=== PATIENT | female | born 1955 | race Caucasian/White ===

== ENCOUNTER 2019-07-02 06:02 | Day surgery (SDC) | payer MEDICARE, MEDICAID, SELFPAY ==
[2019-06-27 12:05] VITALS: BMI 27.3
--- NOTE | 2019-06-27 12:30 | ANES.PREANES ---
Pre-Anesthetic Assessment Pre-Anesthetic Assessment: Height/Weight: Height 1.6 m Weight 69.853 kg Preop Diagnosis: polyps Proposed Procedure: Operation Date: 07/02/19 12:10 Proposed Procedures p Hysteroscopy with polypectomy, Paracervical block 65703 [id number], N84.0(Not Applicable) - Binh Dumont MD s Dilation And Curettage (D&C) w myosure(Not Applicable) - Binh Dumont MD Familial anesthetic complications: No trouble Was Beta Alireza taken within 24 hours: N/A Social: Social History: Tobacco (1 ppd) and No alcohol Exam: Pre-Anes Outpt Exam: alert Airway: Cervical ROM: WNL MP: 2 Additional comments: Top dentures Pulmonary: Pulmonary: None reported CV/HEM: CV/HEM: DVT and HTN Comments: On plavix for blood clots in legs, patient has stent in abdominal aorta : : None reported Hepatic: Hepatic: None reported GI: GI: GERD Metabolic: Metabolic: Hyperlipidemia Musc/skel: Musc/skel: None reported Neuropsych: Neuropsych: None reported Anesthetic Plan: ASA status: III Anesthesia: General Risk of > 500 ml blood loss (7ml/kg in children): No PFSH Anesthesia PFSH: Social History Smoking and tobacco status: current every day smoker cigarettes Alcohol intake: current Alcohol intake frequency: holidays/special occasions only Alcohol type: beer Substance/Drug Use: never Additional social history: Poorly balanced diet Data Anesthesia Cardiac Studies: No Data to Display
[2019-06-27 13:36] LABS: Anion Gap 16.2 (5-19); Blood Urea Nitrogen 14 mg/dL (8-23); Calcium 10.7 mg/Dl (8.8-10.2); Carbon Dioxide 27 mmol/L (22-29); Chloride 100 mmol/L (98-107); Glomerular Filtration Rate 72.7 mL/min (90-130); Glucose 123 mg/dL (74-106); Potassium 4.2 mmol/L (3.5-5.1); Sodium 139 mmol/L (136-145)
[2019-07-02 06:17] VITALS: BP 152/97; PULSE 87; RESP 20; TEMP 37.1; O2SAT 97
[2019-07-02] MEDS: ketorolac 30 mg/mL INJ IVP (06:31)
[2019-07-02] MEDS: sodium chloride 0.9% 1,000 ML 30 ML IV (06:32)
--- NOTE | 2019-07-02 07:11 | PM.HPUD ---
H&P update H&P Update: DATE OF SURGERY/PROCEDURE: 07/02/19 DATE H&P PERFORMED: 06/24/19 H&P UPDATE INFORMATION: H&P completed within last 30 days, No changes to prior documentation and [place] [facility] date indicated PREOP DIAGNOSIS: Endometrial Polyps PLANNED PROCEDURE: Operation Date: 07/02/19 07:40 Proposed Procedures p Hysteroscopy with polypectomy, Paracervical block 95847 [id number], N84.0(Not Applicable) - MD addison Vallejo Dilation And Curettage (D&C) w myosure(Not Applicable) - Binh Dumont MD Full H&P Medications/Allergies: Current Medications: Current Medications Generic Name Dose Route Start Last Admin Trade Name Freq PRN Reason Stop Dose Admin Sodium Chloride 1,000 mls @ 30 ml s/hr 07/02/19 05:45 07/02/19 06:32 Sodium Chloride 0.9% IV 07/03/19 05:44 30 mls/hr .Q24H JUAN Administration Perinent History: Medical/Surgical History: Medical History (Updated 06/29/19 @ 05:10 by Binh Dumont MD) Carotid atherosclerosis (Acute) Bilateral carotid atherosclerosis. Had high-grade stenosis of the left side treated surgically on 12/07/2016. At that time noted to have total occlusion of the right carotid artery. Chronic GERD (Acute) Dyslipidemia (Acute) Hypertension (Acute) Osteoporosis (Acute) Treated since 2011 Raynauds disease (Acute) Family History: Family History (Updated 06/21/19 @ 12:05 by Katya Weaver RN) Family/Other Breast cancer Paternal aunt Mother Hyperlipidemia Hypertension Diabetes Heart disease Social History: Social History Smoking and tobacco status: current every day smoker cigarettes Alcohol intake: current Alcohol intake frequency: holidays/special occasions only Alcohol type: beer Additional social history: Poorly balanced diet
--- NOTE | 2019-07-02 08:47 | P.OP_ITS ---
Operative Report Date of procedure: 07/02/19 Pre-op Diagnosis: Endometrial Polyps Pre-op Diagnosis: Post-op diagnosis: same Procedure Done: Hysteroscopy with polypectomy using MyoSure, Paracervical block. Specimens removed/disposition: Endometrial polyps Surgeon: Binh Dumont Anesthesia: MAC and Other (Paracervical block with 2% lidocaine with epinephrine) Estimated blood loss (mL): 2 IV fluids (mL): 700 Complications: None Condition: stable Disposition: other (Home) Brief History: Patient is a 64-year-old white female 4, para 4 who is postmenopausal. She had presented to the office as a referral from Vivi Love due to an incidental finding of a thickened endometrial lining found on CT scan. She had reported having some light pink spotting that been present since about 03/2019. She denied any pain associated with this. She thought the blood was due to sexual activity. As part of her evaluation, she had an ultrasound performed which showed an endometrial stripe of 1.8 cm. An office hysteroscopy was performed and identified 2 polyps within the endometrial cavity with the largest extending from the fundus down to the upper portion of the endocervical canal. Because of these findings, she was scheduled for a hysteroscopy with polypectomy. Procedure: The patient was taken to the operating room where IV sedation was started. She was prepped and draped in the usual sterile fashion in the dorsal supine position with legs in Logan style stirrups. Sequential compression boots had been placed prior to starting the case. Patient had voided just before coming to the operating room. Exam under anesthesia was performed and the patient was noted to have second- degree uterine prolapse with a second to third-degree cystocele. A weighted speculum was placed in the vagina and the cervix was grasped with a single-tooth tenaculum. A paracervical block was performed with a total of 12 mL of 2% lidocaine with epinephrine used. The cervix was serially dilated until a operative hysteroscope could be passed. Crystalloid solution was used as a distention media. The endometrial cavity was inspected and appeared normal except for 2 polyps. The largest was extending from the fundus down into the upper portion of the endocervical canal. The other was located in the left cornual region. Using the MyoSure device, the polyps were completely removed without difficulty. No additional polyps were identified other than the 2 previously mentioned. No other endometrial cavity abnormalities noted. Both tubal ostia identified and appeared normal. The tenaculum was removed and there was minimal bleeding from the tenaculum site. Patient tolerated the procedure well. Sponge and needle counts were correct. FINDINGS: Second-degree uterine prolapse with second to third-degree cystocele noted. 2 benign-appearing endometrial polyps identified. POSTOPERATIVE STATUS: The patient was transferred to the recovery room in satisfactory condition DISPOSITION: Discharge to home when criteria was met. FOLLOWUP APPOINTMENT: Followup appointment had been scheduled on 07/22/2019 in my office. MEDICATIONS: Tramadol 50 mg, 1 to 2 tablets every 6 hours as needed for pain, #10, 0 refills Patient may resume usual home medications.
[2019-07-02 08:51] VITALS: BP 91/56; PULSE 72; RESP 18; TEMP 37.2
[2019-07-02 09:15] VITALS: BP 124/86; PULSE 82; RESP 18; O2SAT 98
== END 2019-07-02 09:20 | disposition home or self-care (01) ==
PROVIDERS: Family Provider Nurse Practitioner; PCP Nurse Practitioner; Visit Provider Obstetrics & Gynecology
PROC: 0UDB8ZZ Extraction of Endometrium, Via Natural or Artificial Opening Endoscopic (ICD-10-PCS; CPT 58558; principal; 2019-07-02 07:40)
PROC: (CPT 58120; 2019-07-02 07:40)
DX: N84.0 Polyp of corpus uteri (principal); E78.5 Hyperlipidemia, unspecified; I10 Essential (primary) hypertension; M81.0 Age-related osteoporosis without current pathological fracture; Z82.49 Family history of ischemic heart disease and other diseases of the circulatory system; Z83.3 Family history of diabetes mellitus; F17.210 Nicotine dependence, cigarettes, uncomplicated; K21.9 Gastro-esophageal reflux disease without esophagitis
CPT/HCPCS: 58558; 12345; 36415; 80048; 88305; 96365; 96374; J1885; J2001; J2250; J2370; J2704; J3010; J7030

== ENCOUNTER → 2019-09-30 15:39 | Outpatient (BNVA) | payer MEDICARE, MEDICAID, SELFPAY | PROVIDERS: Family Provider Nurse Practitioner; PCP Nurse Practitioner; Visit Provider Nurse Practitioner | DX: I10 Essential (primary) hypertension (principal); E78.5 Hyperlipidemia, unspecified; J30.1 Allergic rhinitis due to pollen; J44.9 Chronic obstructive pulmonary disease, unspecified; Z87.891 Personal history of nicotine dependence | CPT/HCPCS: 80053 ==

== ENCOUNTER → 2019-12-23 09:52 | Outpatient (BNVA) | payer MEDICARE, MEDICAID, SELFPAY | PROVIDERS: Family Provider Nurse Practitioner; PCP Nurse Practitioner; Visit Provider Nurse Practitioner | DX: I10 Essential (primary) hypertension (principal); I65.29 Occlusion and stenosis of unspecified carotid artery; G47.00 Insomnia, unspecified; E78.5 Hyperlipidemia, unspecified; J44.9 Chronic obstructive pulmonary disease, unspecified; Z72.0 Tobacco use | CPT/HCPCS: 80053; 80061; 84443 ==

== ENCOUNTER 2020-01-07 09:49 | Outpatient (CLI) | payer MEDICARE, MEDICAID, SELFPAY ==
--- NOTE | 2020-01-07 10:15 | USCV_ITS ---
Jennifer Arreaga Age: 64 Gender: F : 1955 Exam Date: 01/07/2020 10:09 Ordering Phys: Mp Ramsey MD ([email or web address]) Technologist: Kathia Gerardo [place] [facility] [place]: CAROTID DISEASE Risk Factors: None Previous Vascular Surgery: L CEA Right Brachial BP: / Left Brachial BP: / Right Left Velocity (cm/s) Spectral Plaque Velocity (cm/s) Spectral Plaque Syst/Diast Broadening Syst/Diast Broadening 106.00/14.00 Prox CCA 90.80 / 37.80 54.30/ 13.00 Mid CCA 86.10 / 33.10 46.20/ 16.10 Distal CCA 83.30 / 34.10 / Prox ICA 81.40 / 30.30 / Mid ICA 89.90 / 38.80 / Distal ICA 118.40/ 54.50 124.00 ECA 75.70 ICA/CCA 1.38 Antegrade Vertebral Antegrade 58.60/ 19.10 cm/s 49.60/ 22.20 cm/s Tri Subclavian Tri 115.9 59.80 0 CONCLUSIONS RIght ICA occluded likely chronic. Right common carotid is patent. Left ICA stenosis <50%. Moderate atheromatous plaque left carotid bulb/ICA. Normal antegrade Doppler flow noted in the right vertebral artery. Normal antegrade Doppler flow noted in the left vertebral artery. Bobo Tobar MD (Electronically Signed) Final Date: 07 January 2020 15:43 S
== END 2020-01-07 09:50 | disposition home or self-care (01) ==
PROVIDERS: Family Provider Nurse Practitioner; PCP Nurse Practitioner; Visit Provider Internal Medicine Cardiovascular Disease
DX: I25.10 Atherosclerotic heart disease of native coronary artery without angina pectoris (principal); I65.23 Occlusion and stenosis of bilateral carotid arteries
CPT/HCPCS: 93880

== ENCOUNTER → 2020-06-25 08:46 | Outpatient (BNVA) | payer MEDICARE, MEDICAID, SELFPAY | PROVIDERS: Family Provider Nurse Practitioner; PCP Nurse Practitioner; Visit Provider Nurse Practitioner | DX: I10 Essential (primary) hypertension (principal); I65.29 Occlusion and stenosis of unspecified carotid artery; J30.1 Allergic rhinitis due to pollen; G47.00 Insomnia, unspecified; R73.9 Hyperglycemia, unspecified; E78.5 Hyperlipidemia, unspecified | CPT/HCPCS: 80053; 80061; 81000; 83036 ==

== ENCOUNTER 2020-08-06 08:24 | Outpatient (CLI) | payer MEDICARE, MEDICAID, SELFPAY ==
--- NOTE | 2020-08-06 08:45 | USCV_ITS ---
Jennifer Arreaga Age: 65 Gender: F : 1955 Exam Date: 08/06/2020 08:46 Ordering Phys: Shine Ziegler M.D ([email or web address]) Technologist: Kathia Gerardo [place] [facility] [place]ication: OCCLUSION AND STENOSIS Risk Factors: Previous Vascular Surgery: L CEA Right Brachial BP: / Left Brachial BP: / Right Left Velocity (cm/s) Spectral Plaque Velocity (cm/s) Spectral Plaque Syst/Diast Broadening Syst/Diast Broadening 40.60/ 12.80 Prox CCA 82.20 / 33.20 48.10/ 11.50 Mid CCA 78.10 / 33.60 43.30/ 6.80 Distal CCA 67.20 / 26.90 / Prox ICA 68.10 / 30.30 / Mid ICA 81.55 / 39.10 / Distal ICA 85.00 / 41.20 130.00 ECA 84.00 ICA/CCA 1.11 Antegrade Vertebral Antegrade 44.70/ 17.60 cm/s 44.40/ 22.80 cm/s Subclavian Tri 79.60 51.80 FINDINGS Comparison 12/29 CONCLUSIONS Prior Left CEA Left ICA stenosis <50%. Right ICA occlusion unchanged. . Right common carotid is patent. Normal antegrade Doppler flow noted in the right vertebral artery. Normal antegrade Doppler flow noted in the left vertebral artery. Bobo Tobar MD (Electronically Signed) Final Date: 06 August 2020 10:25 S
== END 2020-08-06 08:25 | disposition home or self-care (01) ==
LOC: US 08:24
PROVIDERS: PCP Nurse Practitioner; Visit Provider Internal Medicine
DX: I65.23 Occlusion and stenosis of bilateral carotid arteries (principal)
CPT/HCPCS: 93880

== ENCOUNTER → 2020-09-11 10:39 | Outpatient (BNVA) | payer MEDICARE, MEDICAID, SELFPAY | PROVIDERS: PCP Nurse Practitioner; Visit Provider Nurse Practitioner | DX: E78.5 Hyperlipidemia, unspecified (principal); J44.9 Chronic obstructive pulmonary disease, unspecified | CPT/HCPCS: 80053; 80061; 85025 ==

== ENCOUNTER 2020-10-08 13:57 | Outpatient (CLI) | payer MEDICARE, MEDICAID, SELFPAY ==
--- NOTE | 2020-10-08 14:30 | US_ITS ---
WS: [id number] THYROID ULTRASOUND HISTORY: E04.9 - Nontoxic goiter, unspecified COMPARISON: None available. Right lobe: 1.5 cm x 1.2 cm x 3.4 cm (w x ap x l). Volume: 3.0 cm3. Normal size and echogenicity. There are several small cystic nodules within the gland. No solid domin ant nodule. Left lobe: 1.7 cm x 1.4 cm x 3.3 cm (w x ap x l). Volume: 4.3 cm3. Normal size gland. No solid mass or suspicious mass. Isthmus: 0.3 cm. US/US thyroid [id number] IMPRESSION: Negative thyroid ultrasound. No suspicious masses or thyromegaly.
--- NOTE | 2020-10-08 15:30 | MM_ITS ---
WS: [id number] BILATERAL SCREENING DIGITAL MAMMOGRAM WITH CAD HISTORY: Z12.39 - Encounter for other screening for malignant neoplasm of breast COMPARISON: 05/01/2017 Bilateral CC and MLO views submitted. Computer aided detection analyzed. Breast composition: There are scattered areas of fibroglandular density. No suspicious masses, microc alcifications or architectural distortion. Inverted nipples. MM/[place] [id number] IMPRESSION: BI-RADS: 2-Benign FOLLOW UP: 1 Year Follow-up
== END 2020-10-08 13:58 | disposition home or self-care (01) ==
LOC: RAD 14:02
PROVIDERS: PCP Nurse Practitioner; Visit Provider Nurse Practitioner
DX: Z12.31 Encounter for screening mammogram for malignant neoplasm of breast (principal); E04.9 Nontoxic goiter, unspecified
CPT/HCPCS: 76536; 77067

== ENCOUNTER → 2021-03-30 09:07 | Outpatient (BNVA) | payer MEDICARE, MEDICAID, SELFPAY | PROVIDERS: PCP Nurse Practitioner; Visit Provider Nurse Practitioner | DX: I10 Essential (primary) hypertension (principal); I65.29 Occlusion and stenosis of unspecified carotid artery; J30.1 Allergic rhinitis due to pollen; G47.00 Insomnia, unspecified | CPT/HCPCS: 80053; 80061; 81000; 82607; 84443 ==

== ENCOUNTER 2021-09-01 07:15 | Outpatient (CLI) | payer MEDICARE, MEDICAID, SELFPAY ==
--- NOTE | 2021-09-01 07:45 | USCV_ITS ---
Jennifer Arreaga Age: 66 Gender: F : 1955 Exam Date: 09/01/2021 07:26 Ordering Phys: Shine Ziegler M.D ([email or web address]) Technologist: Exam Location: [facility] [place] Indication: rt side occlusion Risk Factors: Previous Vascular Surgery: Right Brachial BP: / Left Brachial BP: / Right Left Velocity (cm/s) Spectral Plaque Velocity (cm/s) Spectral Plaque Syst/Diast Broadening Syst/Diast Broadening 48.10/ 7.50 Prox CCA 58.40 / 22.10 32.00/ 7.50 Mid CCA 63.90 / 17.60 Hetro 31.00/ 5.90 Distal CCA 62.80 / 19.80 Hetro / Hetro Prox ICA 94.80 / 29.80 Hetro / Hetro Mid ICA 82.30 / 42.00 Hetro / Distal ICA 109.50/ 49.10 156.90 ECA 69.90 ICA/CCA 1.71 Antegrade Vertebral Antegrade 61.70/ 23.20 cm/s 51.70/ 21.00 cm/s Bi Subclavian Bi 106.9 84.10 0 FINDINGS Comparison:. 08/06/20. Know occlusion right ICA. Heavy plaque in the right CCA. Moderate plaque left CCA and ICA. Mild elevation of velocity left ICA. Antegrade vertebral arteries. CONCLUSIONS Complete occlusion right ICA, chronic. Left ICA stenosis < 50%. No progression of atherosclerosis. Dr. Lexus Contreras DO (Electronically Signed) Final Date: 01 September 2021 09:39 S
== END 2021-09-01 07:16 | disposition home or self-care (01) ==
LOC: RAD 07:15
PROVIDERS: PCP Nurse Practitioner; Visit Provider Internal Medicine
DX: I65.23 Occlusion and stenosis of bilateral carotid arteries (principal)
CPT/HCPCS: 93880

== ENCOUNTER → 2021-09-13 14:48 | Outpatient (BNVA) | payer MEDICARE, MEDICAID, SELFPAY | PROVIDERS: PCP Nurse Practitioner; Visit Provider Nurse Practitioner | DX: I10 Essential (primary) hypertension (principal) | CPT/HCPCS: 80053; 80061; 83721; 85025 ==

== ENCOUNTER → 2021-09-30 12:15 | Outpatient (BNVA) | payer MEDICARE, MEDICAID, SELFPAY | PROVIDERS: PCP Nurse Practitioner; Visit Provider Internal Medicine | DX: I65.23 Occlusion and stenosis of bilateral carotid arteries (principal); Z98.62 Peripheral vascular angioplasty status; I10 Essential (primary) hypertension; E78.5 Hyperlipidemia, unspecified; J44.9 Chronic obstructive pulmonary disease, unspecified; F17.210 Nicotine dependence, cigarettes, uncomplicated; I25.10 Atherosclerotic heart disease of native coronary artery without angina pectoris; Z98.890 Other specified postprocedural states | CPT/HCPCS: 99214 ==

== ENCOUNTER → 2022-03-22 14:46 | Outpatient (BNVA) | payer MEDICARE, MEDICAID, SELFPAY | PROVIDERS: PCP Nurse Practitioner; Visit Provider Nurse Practitioner | DX: I65.29 Occlusion and stenosis of unspecified carotid artery (principal); E78.1 Pure hyperglyceridemia; J30.1 Allergic rhinitis due to pollen; I10 Essential (primary) hypertension; E78.5 Hyperlipidemia, unspecified | CPT/HCPCS: 80053; 80061; 83721; 84443; 85025 ==

== ENCOUNTER 2022-03-31 06:03 | Outpatient (CLI) | payer MEDICARE, MEDICAID, SELFPAY ==
--- NOTE | 2022-03-31 06:30 | USCV_ITS ---
Arreaga Jennifer Age: 66 Gender: F : 1955 Exam Date: 03/31/2022 06:17 Ordering Phys: Shine Ziegler M.D ([email or web address]) Technologist: RAISA [place] [facility] [place]: Carotid atherosclerosis Risk Factors: Previous Vascular Surgery: Right Brachial BP: / Left Brachial BP: / Right Left Velocity (cm/s) Spectral Plaque Velocity (cm/s) Spectral Plaque Syst/Diast Broadening Syst/Diast Broadening 53.20/ 8.50 Hetro Prox CCA 92.00 / 27.60 Hetro 51.30/ 7.90 Hetro Mid CCA 77.60 / 31.60 Hetro 23.70/ 5.80 Hetro Distal CCA 49.30 / 11.80 Hetro / Homo Prox ICA 84.60 / 35.00 Hetro / Homo Mid ICA 91.40 / 45.30 / Homo Distal ICA 98.30 / 45.30 121.30 Hetro ECA 58.50 ICA/CCA 1.07 Antegrade Vertebral Antegrade 53.80/ 22.20 cm/s 56.40/ 28.20 cm/s Tri Subclavian Tri 124.9 82.00 0 FINDINGS RT ICA completely occluded. Previous surgery on LT side Mild to moderate plaques at the right bifurcation. No Doppler flow signals in the right ICA Moderate heterogenous diffuse plaques of the left bifurcation and in the ICA Antegrade flow in the vertebral arteries bilaterally Normal Doppler velocities in the external carotid and subclavian arteries bilaterally CONCLUSIONS 1. Features of total occlusion of the right internal carotid artery 2. Moderate diffuse heterogenous plaques in the left bifurcation and in the internal carotid artery, suggesting less than 50% stenosis. 3. No significant stenosis in the vertebral, subclavian and external carotid arteries, based on the above findings Compared to the study from 09/01/2021, there may not be significant change. Right internal carotid artery occlusion appears to be chronic Dr Guillermina Carbajal MD [facility] (Electronically Signed) Final Date: 04 April 2022 07:34 S
== END 2022-03-31 06:04 | disposition home or self-care (01) ==
LOC: RAD 06:04
PROVIDERS: PCP Nurse Practitioner; Visit Provider Internal Medicine
DX: I65.23 Occlusion and stenosis of bilateral carotid arteries (principal); I25.10 Atherosclerotic heart disease of native coronary artery without angina pectoris; Z98.62 Peripheral vascular angioplasty status; Z98.890 Other specified postprocedural states; I10 Essential (primary) hypertension; E78.2 Mixed hyperlipidemia; J44.9 Chronic obstructive pulmonary disease, unspecified; F17.210 Nicotine dependence, cigarettes, uncomplicated
CPT/HCPCS: 93880; 99214

== ENCOUNTER 2022-08-31 09:41 | Outpatient (CLI) | payer MEDICARE, MEDICAID, SELFPAY ==
--- NOTE | 2022-08-31 10:00 | USCV_ITS ---
Jennifer Arreaga Age: 67 Gender: F : 1955 Exam Date: 08/31/2022 10:12 Ordering Phys: Shine Ziegler M.D ([email or web address]) Technologist: ILENE [place] [facility] [place]ication: RT ICA OCCLUSION Risk Factors: Previous Vascular Surgery: Right Brachial BP: / Left Brachial BP: / Right Left Velocity (cm/s) Spectral Plaque Velocity (cm/s) Spectral Plaque Syst/Diast Broadening Syst/Diast Broadening 79.20/ 10.10 Prox CCA 84.60 / 41.00 53.40/ 13.40 Mid CCA 105.80/ 50.70 49.10/ 9.10 Distal CCA 91.50 / 41.90 0.90 / 0.90 Prox ICA 68.40 / 36.80 0.90 / 0.90 Mid ICA 71.60 / 40.80 0.90 / 0.90 Distal ICA 84.10 / 48.00 106.00 ECA 95.90 0.01 ICA/CCA 0.79 Antegrade Vertebral Antegrade 27.80/ 11.70 cm/s 51.90/ 32.20 cm/s Tri Subclavian Bi 82.90 105.8 0 FINDINGS COMPLETE RT ICA OCCLUSION SEEN ON PRIOR AND TODAY. CONCLUSIONS Chronic RIGHT ICA occlusion unchanged since 03/31/22 Left ICA stenosis <50%. Moderate calcified atheromatous plaque left carotid bulb/ICA. Normal antegrade Doppler flow noted in the right vertebral artery. Normal antegrade Doppler flow noted in the left vertebral artery. Bobo Tobar MD (Electronically Signed) Final Date: 31 August 2022 17:56 S
== END 2022-08-31 09:42 | disposition home or self-care (01) ==
LOC: RAD 09:44
PROVIDERS: PCP Nurse Practitioner; Visit Provider Internal Medicine
DX: I65.23 Occlusion and stenosis of bilateral carotid arteries (principal)
CPT/HCPCS: 93880

== ENCOUNTER → 2022-11-21 08:33 | Outpatient (BNVA) | payer MEDICARE, MEDICAID, SELFPAY | PROVIDERS: PCP Nurse Practitioner; Visit Provider Nurse Practitioner | DX: I10 Essential (primary) hypertension (principal) | CPT/HCPCS: 80053; 80061; 84443 ==

== ENCOUNTER → 2022-12-08 15:05 | Outpatient (BNVA) | payer MEDICARE, MEDICAID, SELFPAY | PROVIDERS: PCP Nurse Practitioner; Visit Provider Internal Medicine | DX: I65.23 Occlusion and stenosis of bilateral carotid arteries (principal); I25.10 Atherosclerotic heart disease of native coronary artery without angina pectoris; Z98.62 Peripheral vascular angioplasty status; Z98.890 Other specified postprocedural states; I10 Essential (primary) hypertension; E78.5 Hyperlipidemia, unspecified; J44.9 Chronic obstructive pulmonary disease, unspecified; Z72.0 Tobacco use; J30.1 Allergic rhinitis due to pollen | CPT/HCPCS: 99214 ==

== ENCOUNTER 2022-12-16 12:54 | Outpatient (CLI) | payer MEDICARE, MEDICAID, SELFPAY ==
--- NOTE | 2022-12-16 13:21 | MM_ITS ---
WS: [id number] Bilateral screening 3D tomosynthesis digital mammogram, 12/16/2022 Clinical Data: Z12.31 - Encounter for screening mammogram for malignant ... Comparison: 10/07/2020, 05/01/2017, 01/10/2013, 07/14/2011, 01/08/2010. Findings: The breast parenchymal pattern shows glandular tissue. No spiculated masses or clustered calcificatio ns are seen. There are no secondary signs of carcinoma. There are lymph nodes in both axilla. MM/[place] [id number] Impression: 1. Negative bilateral mammogram unchanged. 2. Recommend annual screening mammograms. BIRADS: 1-Negative FOLLOW UP: 1 Year Follow-up The CAD installment account checker was used.
--- NOTE | 2022-12-16 13:30 | XR_ITS ---
WS: [id number] DEXA (DUAL ENERGY X-RAY ABSORPTIOMETRY) Bone mineral density was performed using a CrossLoop machine. HISTORY: Z78.0 - Asymptomatic menopausal state COMPARISON: 01/30/2019 Lumbar spine BMD (L1-L4): 1.396 g/cm2 T score: 1.8 Z score: 3.2 Total hip BMD: Left: 1.003 g/cm2. T score: 0.0 Z score: 1.1 Right: 0.788 g/cm2. T score: -1.7 Z score: -0.6 10 year probability of a major osteoporotic fracture is 21.2%. Compared to the prior study from 01/30/2019. Lumbar spine bone mineral density has decreased by 2.5%. Bilateral hips bone mineral density has decreased by 4.1%. XR/XR DEXA axial skeleton* [id number] IMPRESSION: OSTEOPENIA based upon the WHO classification for females. Significant decrease in bone mineral density within the lumbar spine and hips s aust[place] the prior study.
== END 2022-12-16 12:55 | disposition home or self-care (01) ==
PROVIDERS: PCP Nurse Practitioner; Visit Provider Nurse Practitioner
DX: Z12.31 Encounter for screening mammogram for malignant neoplasm of breast (principal); Z78.0 Asymptomatic menopausal state; M85.80 Other specified disorders of bone density and structure, unspecified site
CPT/HCPCS: 77063; 77067; 77080

== ENCOUNTER 2022-12-27 09:00 | Outpatient (CLI) | payer MEDICARE, MEDICAID, SELFPAY ==
--- NOTE | 2022-12-27 09:15 | CT_ITS ---
WS: [id number] LDCT LUNG CANCER SCREENING TECHNIQUE: Noncontrast CT of the chest with coronal and sagittal reformatted images. CLINICAL INFORMATION: F17.210 - Nicotine dependence, cigarettes, uncomplicated COMPARISON: None. DLP: 52.80 mGy.cm DIvol: Mean CTDIvol: 1.00 (mGy) All CT scans at [facility] use at least one of these dose optimization techniques: automat ed exposure control; mA and/or kV adjustment per patient size (includes targeted exams where dose is matched to clinical indication); or iterative reconstruction. FINDINGS: Slightly spiculated nodule RIGHT upper lobe posteriorly measuring 6 mm. Micronodular RIGHT upper lobe along the hilum. This is nonspecific but likely inflammatory. Calcified granuloma RIGHT lower lobe. Calcified subpleural nodule LEFT lower lobe. Aortic calcification. Normal caliber thoracic aorta. Coronary calcification. No mediastinal or hilar lymphadenopathy. No axillary lymphadenopathy. Adrenal glands are normal. Normal GE junction. Partially visualized aortic endograft in the upper abd ominal aorta. Mild thoracic kyphosis. Chronic anterior wedging in the upper thoracic spine. Endplate Schmorl's nodes. CT/CT lung screening [id number] IMPRESSION:Slightly spiculated nodule RIGHT upper lobe posteriorly measuring 6 mm. Recommend 6 month follow-up. LUNG-RADS: 3-Probably Benign FOLLOW UP: 6 Month LDCT
== END 2022-12-27 09:01 | disposition home or self-care (01) ==
PROVIDERS: PCP Nurse Practitioner; Visit Provider Nurse Practitioner
DX: Z12.2 Encounter for screening for malignant neoplasm of respiratory organs (principal); F17.210 Nicotine dependence, cigarettes, uncomplicated
CPT/HCPCS: 71271

== ENCOUNTER → 2023-01-24 08:55 | Outpatient (BNVA) | payer MEDICARE, MEDICAID, SELFPAY | PROVIDERS: PCP Nurse Practitioner; Visit Provider Surgery | DX: Z12.11 Encounter for screening for malignant neoplasm of colon (principal); K21.9 Gastro-esophageal reflux disease without esophagitis | CPT/HCPCS: 99024; 99203 ==

== ENCOUNTER 2023-03-08 07:53 | Day surgery (SDC) | payer MEDICARE, MEDICAID, SELFPAY ==
[2023-03-06 12:35] VITALS: BMI 26.5
--- NOTE | 2023-03-08 08:08 | ANES.PREANE2 ---
Pre-Anesthetic Assessment Height/Weight: Height 1.6 m Weight 68.039 kg Preop Diagnosis: screening Operation Date: 03/08/23 09:30 Proposed Procedures p 69180 egd [id number] colon Z12.11,K21.9(Not Applicable) - DO addison Hanks Colonoscopy(Not Applicable) - Lui Cazares DO Familial anesthetic complications: none Was Beta Alireza taken within 24 hours: N/A Was Clonidine taken within 24 hours: N/A Last Intake: 16:00 Social Tobacco and No alcohol 1ppd pack(s) per day 40+ pack years Exam alert, oriented x 3, clear to auscultation bilaterally and regular rate & rhythm Airway Submandibular: within normal limits Cervical ROM: within normal limits Mallampati: Class II Dentition: false (upper) Pulmonary Chronic Obstructive Pulmonary Disease CV/HEM Deep Vein Thrombosis and Hypertension AAA stent with 5.8cm 2016. Had DVT after. None reported Hepatic None reported GI Gastroesophageal Reflux Disease Metabolic None reported Musc/skel Lower Back Pain and Osteoarthritis/DJD Neuropsych None reported Anesthetic Plan ASA status: 3 Anesthesia: MAC Medications/Allergies Home Medications Medication Instructions Recorded Confirmed Last Taken Type acetaminophen 325 mg capsule 650 mg PO TID PRN Pain 06/21/19 03/06/23 06/25/19 History clopidogrel 75 mg tablet 75 mg PO DAILY #30 tabs 11/21/22 03/06/23 02/25/23 Rx hydrochlorothiazide 25 mg tablet 25 mg PO DAILY #30 tabs 11/21/22 03/06/23 03/06/23 Rx icosapent ethyl 1 gram capsule 2 g PO BID #120 caps 11/21/22 03/06/23 03/06/23 Rx (Vascepa) lisinopril 2.5 mg tablet 2.5 mg PO DAILY #30 tabs 11/21/22 03/06/23 03/06/23 Rx magnesium oxide 800 mg PO DAILY #60 tabs 11/21/22 03/06/23 03/06/23 Rx omeprazole magnesium 20 mg 20 mg PO DAILY #30 tabs 11/21/22 03/06/23 03/06/23 Rx tablet,delayed release (Prilosec OTC) rosuvastatin 40 mg tablet (Crestor) 40 mg PO DAILY #30 tabs 11/21/22 03/06/23 03/06/23 Rx ibandronate 150 mg tablet (Boniva) 150 mg PO .monthly #1 tab 12/20/22 03/06/23 2 Weeks Ago Rx ~02/20/23 pantoprazole 40 mg tablet,delayed 40 mg PO BID 6 weeks #84 tabs 01/24/23 03/06/23 03/06/23 Rx release (Protonix) Lactobacillus rhamnosus GG 20 2 cell PO BID 03/06/23 03/06/23 03/06/23 History billion cell capsule (Probiotic Digestive Care) levocetirizine 5 mg tablet 5 mg PO DAILY PRN Allergy Symptoms 03/06/23 03/06/23 03/03/23 History Allergies Allergy/AdvReac Type Severity Reaction Status Date / Time No Known Allergies Allergy Verified 01/24/23 09:00 [facility] Anesthesia Medical History Carotid atherosclerosis Bilateral carotid atherosclerosis. Had high-grade stenosis of the left side treated surgically on 12/07/2016. At that time noted to have total occlusion of the right carotid artery. Chronic allergic rhinitis due to pollen Chronic GERD COPD (chronic obstructive pulmonary disease) Dyslipidemia Hypertension Insomnia Osteoporosis Treated since 2011 Raynauds disease Renal artery stenosis Tobacco abuse Surgical History (Updated 01/24/23 @ 09:27 by Lui Cazares DO) History of abdominal aortic aneurysm repair (06/09/16) History of esophagogastroduodenoscopy (EGD) History of tubal ligation (~1984) Performed . Hx of colonoscopy 10 years , possible polyps found S/P angioplasty with stent S/P carotid endarterectomy (12/07/16) Left. Performed by Dr. Bustos at [facility] and [place], [place]. S/P renal artery angioplasty S/P shoulder surgery (07/23/12) Resection of distal left clavicle. Diagnosis: Left acromioclavicular joint arthritis. Performed by Luis Antonio George at [facility] in [place], [place]. Status post fracture of left tibia (02/07/09) Debridement and irrigation of right tibia with application of bulk dressing and sugar tong. Diagnosis grade 2 open right tibial fracture midshaft, nondisplaced. Performed by Dr. Morro Evangelista at [facility] and [place], [place]. Status post fracture of left tibia (02/09/09) Open reduction internal fixation right tibial fracture. Performed by Dr. Jt Sheridan at [facility] and [place], [place]. Status post hysteroscopic polypectomy (07/02/19) 2 polyps identified and removed during surgery. [place]. Dumont [place] [facility] [place] Pathology was benign polyps. Family History Family/Other Breast cancer Paternal aunt Mother Hyperlipidemia Hypertension Diabetes Heart disease Social History Smoking and tobacco status: current every day smoker cigarettes Packs smoked per day: 1 Second hand smoke exposure: Yes Smoking risk assessment/counseling performed?: Yes Alcohol intake: current Alcohol intake frequency: few times a month Alcohol type: beer Desire information about alcohol rehabilitation?: No Counseling given: No Substance/Drug Use: never Desire information about substance/drug rehabilitation?: No Counseling given: No Adopted: No Caregiver/support person: No Lives independently: Yes Household members: spouse Housing: House Marital status: service: No Current occupational status: disabled Do you think of yourself as: Straight/Heterosexual Current gender identity: Female Additional social history: Poorly balanced diet Data Anesthesia Cardiac Studies: No Data to Display
[2023-03-08 08:10] VITALS: BP 194/101; PULSE 81; RESP 18; TEMP 36.6; O2SAT 97
[2023-03-08 08:15] VITALS: BP 166/113
[2023-03-08] MEDS: sodium chloride 0.9% 1,000 ML 30 ML IV (08:48)
--- NOTE | 2023-03-08 09:54 | P.HP_ITS ---
Providers/Chief Complaint Primary Care Provider: BRYAN Kenney Chief Complaint: Z12.11, K21.9 History of Present Illness Jennifer Arreaga is a 67 year old female Review of Systems General: Reports: 10 or more systems reviewed and unremarkable except in HPI and below Medications/Allergies Home Medications Medication Instructions Recorded Confirmed Last Taken Type acetaminophen 325 mg capsule 650 mg PO TID PRN Pain 06/21/19 03/08/23 2 Weeks Ago History ~02/22/23 clopidogrel 75 mg tablet 75 mg PO DAILY #30 tabs 11/21/22 03/06/23 03/03/23 Rx hydrochlorothiazide 25 mg tablet 25 mg PO DAILY #30 tabs 11/21/22 03/06/23 03/08/23 06:30 Rx icosapent ethyl 1 gram capsule 2 g PO BID #120 caps 11/21/22 03/06/23 03/07/23 Rx (Vascepa) lisinopril 2.5 mg tablet 2.5 mg PO DAILY #30 tabs 11/21/22 03/06/23 03/08/23 06:30 Rx magnesium oxide 800 mg PO DAILY #60 tabs 11/21/22 03/08/23 2 Months Ago Rx ~01/05/23 omeprazole magnesium 20 mg 20 mg PO DAILY #30 tabs 11/21/22 03/08/23 1 Month Ago Rx tablet,delayed release (Prilosec ~02/05/23 OTC) rosuvastatin 40 mg tablet (Crestor) 40 mg PO DAILY #30 tabs 11/21/22 03/06/23 03/08/23 06:30 Rx pantoprazole 40 mg tablet,delayed 40 mg PO BID 6 weeks #84 tabs 01/24/23 03/06/23 03/08/23 06:30 Rx release (Protonix) Lactobacillus rhamnosus GG 20 2 cell PO BID 03/06/23 03/06/23 03/07/23 History billion cell capsule (Probiotic Digestive Care) levocetirizine 5 mg tablet 5 mg PO DAILY PRN Allergy Symptoms 03/06/23 03/06/23 03/03/23 History Allergies Allergy/AdvReac Type Severity Reaction Status Date / Time No Known Allergies Allergy Verified 03/08/23 08:23 PFSH Acute PFSH: Medical History Carotid atherosclerosis Bilateral carotid atherosclerosis. Had high-grade stenosis of the left side treated surgically on 12/07/2016. At that time noted to have total occlusion of the right carotid artery. Chronic allergic rhinitis due to pollen Chronic GERD COPD (chronic obstructive pulmonary disease) Dyslipidemia Hypertension Insomnia Osteoporosis Treated since 2011 Raynauds disease Renal artery stenosis Tobacco abuse Surgical History History of abdominal aortic aneurysm repair (06/09/16) History of esophagogastroduodenoscopy (EGD) History of tubal ligation (~1984) Performed . Hx of colonoscopy 10 years , possible polyps found S/P angioplasty with stent S/P carotid endarterectomy (12/07/16) Left. Performed by Dr. Bustos at [facility] and [place], [place]. S/P renal artery angioplasty S/P shoulder surgery (07/23/12) Resection of distal left clavicle. Diagnosis: Left acromioclavicular joint arthritis. Performed by Luis Antonio George at [facility] in [place], [place]. Status post fracture of left tibia (02/07/09) Debridement and irrigation of right tibia with application of bulk dressing and sugar tong. Diagnosis grade 2 open right tibial fracture midshaft, nondisplaced. Performed by Dr. Morro Evangelista at [facility] and [place], [place]. Status post fracture of left tibia (02/09/09) Open reduction internal fixation right tibial fracture. Performed by Dr. Jt Sheridan at [facility] and [place], [place]. Status post hysteroscopic polypectomy (07/02/19) 2 polyps identified and removed during surgery. Performed by Dr. Dumont at [facility]. Pathology was benign polyps. Family History Family/Other Breast cancer Paternal aunt Mother Hyperlipidemia Hypertension Diabetes Heart disease Social History Smoking and tobacco status: current every day smoker cigarettes Packs smoked per day: 1 Second hand smoke exposure: Yes Smoking risk assessment/counseling performed?: Yes Alcohol intake: current Alcohol intake frequency: few times a month Alcohol type: beer Desire information about alcohol rehabilitation?: No Counseling given: No Substance/Drug Use: never Desire information about substance/drug rehabilitation?: No Counseling given: No Adopted: No Caregiver/support person: No Lives independently: Yes Household members: spouse Housing: House Marital status: service: No Current occupational status: disabled Do you think of yourself as: Straight/Heterosexual Current gender identity: Female Additional social history: Poorly balanced diet Vitals/I&O/Wt Last Vital Signs Temp 97.8 F 03/08/23 08:10 Pulse 81 03/08/23 08:10 Resp 18 03/08/23 08:10 BP 166/113 03/08/23 08:15 Pulse Ox 97 03/08/23 08:10 O2 Del Method Room Air 03/08/23 08:10 Weight last 48 hrs Weight 150 lb A&P Assessment and plan (1) Chronic GERD: (2) Colon cancer screening: Plan EGD and colonoscopy Attestations Medical Necessity Statement*: Home Coding Level of Care Code Acute Code for Chg Fwd Diagnoses Chronic GERD K21.9 Colon cancer screening Z12.11
[2023-03-08 10:27] VITALS: BP 136/98; PULSE 86; RESP 12; TEMP 36.1; O2SAT 95
[2023-03-08 10:37] VITALS: BP 130/87; PULSE 86; RESP 14; O2SAT 94
--- NOTE | 2023-03-08 16:34 | ANE.PACU2 ---
Inpatient post-anesthesia follow up: Airway intact: Yes Vital signs: Temperature 97.0 F Pulse Rate 86 Respiratory Rate 14 Blood Pressure 130/87 Pulse Oximetry 94 Oxygen Delivery Me thod Room Air Oxygen Flow Rate Fraction of Inspir ed Oxygen Hydration adequate: Yes Nausea and vomiting: No Pain level: 2 Mental status: Baseline
== END 2023-03-08 10:55 | disposition home or self-care (01) ==
PROVIDERS: PCP Nurse Practitioner; Visit Provider Surgery
PROC: 0DJ08ZZ Inspection of Upper Intestinal Tract, Via Natural or Artificial Opening Endoscopic (ICD-10-PCS; CPT 43235; principal; 2023-03-08 09:30)
PROC: 0DJD8ZZ Inspection of Lower Intestinal Tract, Via Natural or Artificial Opening Endoscopic (ICD-10-PCS; CPT 45378; 2023-03-08 09:30)
DX: Z12.11 Encounter for screening for malignant neoplasm of colon (principal); D12.2 Benign neoplasm of ascending colon; K21.9 Gastro-esophageal reflux disease without esophagitis; J44.9 Chronic obstructive pulmonary disease, unspecified; E78.5 Hyperlipidemia, unspecified; I10 Essential (primary) hypertension; M81.0 Age-related osteoporosis without current pathological fracture; F17.210 Nicotine dependence, cigarettes, uncomplicated
CPT/HCPCS: 43239; 45385; 88305; J2704; J3490; J7030

== ENCOUNTER → 2023-03-21 09:56 | Outpatient (BNVA) | payer MEDICARE, MEDICAID, SELFPAY | PROVIDERS: PCP Nurse Practitioner; Visit Provider Dermatology | DX: D22.39 Melanocytic nevi of other parts of face (principal); Q82.5 Congenital non-neoplastic nevus; D48.5 Neoplasm of uncertain behavior of skin | CPT/HCPCS: 11102; 99203 ==

== ENCOUNTER → 2023-03-22 14:59 | Outpatient (BNVA) | payer MEDICARE, MEDICAID, SELFPAY | PROVIDERS: PCP Nurse Practitioner; Visit Provider Surgery | DX: Z09 Encounter for follow-up examination after completed treatment for conditions other than malignant neoplasm (principal) | CPT/HCPCS: 99213 ==

== ENCOUNTER → 2023-05-22 15:27 | Outpatient (BNVA) | payer MEDICARE, MEDICAID, SELFPAY | PROVIDERS: PCP Nurse Practitioner; Visit Provider Nurse Practitioner Family | DX: M79.601 Pain in right arm (principal); M19.011 Primary osteoarthritis, right shoulder | CPT/HCPCS: 73030; 73080 ==

== ENCOUNTER 2023-06-01 15:56 | Outpatient (CLI) | payer MEDICARE, SELFPAY ==
--- NOTE | 2023-06-01 16:45 | MR_ITS ---
WS: [id number] MRI RIGHT HUMERUS WITHOUT CONTRAST. COMPARISON: MRI shoulder 01/08/2010 Multiplanar, multisequence imaging is performed without contrast. No destructive bone lesion along the humeral diaphysis. There is a marker placed adjacent to the dist al humerus at the site of pain. There is no soft tissue bone or bone abnormality. The cortex remains intact. Mild narrowing of the glenohumeral joint. Osteochondral defect in the humeral head at the site of the glenoid. Osteochondral defect measures 14 x 5 mm. No joint effusion. There is a small partial split tear of the biceps tendon in the bicipital groove. IMPRESSION: 1. No destructive osseous lesion. No fracture. 2. Osteochondral lesion humeral head. Mild narrowing of the glenohumeral joint. 3. Focal split tear biceps tendon in the bicipital groove.
== END 2023-06-01 15:57 | disposition home or self-care (01) ==
LOC: RAD 15:56
PROVIDERS: PCP Nurse Practitioner; Visit Provider Nurse Practitioner Family
DX: S46.211A Strain of muscle, fascia and tendon of other parts of biceps, right arm, initial encounter (principal); X58.XXXA Exposure to other specified factors, initial encounter; M93.821 Other specified osteochondropathies, right upper arm; M79.601 Pain in right arm
CPT/HCPCS: 73218

== ENCOUNTER → 2023-06-13 09:22 | Outpatient (BNVA) | payer MEDICARE, SELFPAY | PROVIDERS: PCP Nurse Practitioner Family; Visit Provider Student in an Organized Health Care Education/Training Program | DX: M75.41 Impingement syndrome of right shoulder | CPT/HCPCS: 20610; 99204; J3301 ==

== ENCOUNTER 2023-06-30 13:16 | Outpatient (CLI) | payer MEDICARE, SELFPAY ==
[2023-06-30] MEDS: iohexol 350 mg/mL 500 mL Btl (per mL) IV (14:15)
[2023-06-30 14:20] LABS: Blood Urea Nitrogen 22 mg/dL (8-23); Glomerular Filtration Rate 55.5 mL/min (90-130)
--- NOTE | 2023-06-30 14:30 | CT_ITS ---
WS: [id number] CT chest w con* [id number] HISTORY: R91.1 - Solitary pulmonary nodule TECHNIQUE: Axial imaging performed through the thorax. Coronal and sagittal reformats are submitted. All CT scans at [facility] use at least one of these dose optimization techniques: automated exposure control; mA and/or kV adjustment per patient size (includes targeted exams where dose is mat ched to clinical indication); or iterative reconstruction. CONTRAST: Omnipaque 350; 100 mL IV. DLP: 285.41 mGy.cm COMPARISON: 11/25/2016, 12/27/2022 Lungs and central airway: Mild hyperexpansion. No change in the 5 mm noncalcified nodule in the poste rior RIGHT upper lobe. This nodule was also probably present in 2022. There is a calcified granuloma at the RIGHT lung base. No additional nodule or mass. No groundglass attenuation. Pleura: Normal. No pleural effusion. Heart and pericardium: Normal size heart with no pericardial effusion. Mediastinum and jeri: No mediastinum or hilar adenopathy. Vessels: Ectatic atherosclerosis thoracic aorta. There is significant irregular plaque in the mid to distal descending thoracic aorta. Surface irregularity of the soft intimal thickening. Chest wall and lower neck: No soft tissue masses. Upper abdomen: No adrenal mass. Partially visualized abdominal aorta stent graft. Osseous structures: Increased thoracic kyphosis. IMPRESSION: 1. No interval change in the 5 mm nodule in the posterior RIGHT upper lobe. This nodule was also pre sent in 2016 with no increase in size. 2. Benign granuloma RIGHT lower lobe. 3. No mediastinal or hilar adenopathy.
== END 2023-06-30 13:17 | disposition home or self-care (01) ==
LOC: RAD 13:16
PROVIDERS: PCP Nurse Practitioner Family; Visit Provider Nurse Practitioner
DX: R91.1 Solitary pulmonary nodule (principal); J84.10 Pulmonary fibrosis, unspecified
CPT/HCPCS: 71260; 82565; 84520; Q9967

== ENCOUNTER → 2023-07-10 09:46 | Outpatient (BNVA) | payer MEDICARE, SELFPAY | PROVIDERS: PCP Nurse Practitioner Family; Visit Provider Nurse Practitioner | DX: I10 Essential (primary) hypertension (principal) | CPT/HCPCS: 80053; 80061; 81000; 84443; 85025 ==

== ENCOUNTER 2023-07-17 07:32 | Outpatient (CLI) | payer MEDICARE, SELFPAY ==
--- NOTE | 2023-07-17 08:00 | USCV_ITS ---
Jennifer Arreaga Age: 68 Gender: F : 1955 Exam Date: 07/17/2023 08:24 Ordering Phys: Vivi Love Technologist: CT [place]am [place] [facility] [place] Indication: hypertension Aortic Velocity @ SMA (cm/s) 61.1 RIGHT KIDNEY LEFT KIDNEY Velocity (cm/s) Velocity (cm/s) Sys/Laura Sys/Laura Resistive Index Resistive Index 108.7 / 39.7 0.63 Proximal Renal Artery 60.6 / 18.7 0.69 135.8 / 49.9 0.63 Mid Renal Artery 49.9 / 17.2 0.66 101.2 / 36.0 0.64 Distal Renal Artery 58.3 / 18.9 0.68 91.5 / 29.1 0.68 Hilar 44.7 / 13.5 0.70 72.1 / 27.7 0.62 Upper Pole 55.4 / 19.0 0.66 40.5 / 15.3 0.62 Mid Pole 26.5 / 10.3 0.61 32.0 / 13.5 0.58 Lower Pole 35.7 / 14.3 0.60 2.20 Renal Aortic Ratio 0.99 Accleration Index (cm/sec2) 1636.0 Hilar 454.00 0 1586.0 Upper Pole 776.00 0 900.00 Mid Pole 308.00 468.00 Lower Pole 440.00 98.9 Kidney Length (mm) 99.0 FINDINGS No comparison. No evidence of abdominal aortic aneurysm. There is no evidence of hemodynamically significant right renal artery stenosis. There is no evidence of hemodynamically significant left renal artery stenosis. CONCLUSIONS No sonographic evidence of renal aortic stenosis or aneurysm. Dr. Lexus Contreras DO (Electronically Signed) Final Date: 17 July 2023 10:00 S
== END 2023-07-17 07:33 | disposition home or self-care (01) ==
LOC: RAD 07:32
PROVIDERS: PCP Nurse Practitioner Family; Visit Provider Nurse Practitioner
DX: I10 Essential (primary) hypertension (principal)
CPT/HCPCS: 93975

== ENCOUNTER → 2023-08-15 08:56 | Outpatient (BNVA) | payer MEDICARE, SELFPAY | PROVIDERS: PCP Nurse Practitioner Family; Visit Provider Nurse Practitioner Family | DX: M79.645 Pain in left finger(s) (principal); M79.89 Other specified soft tissue disorders | CPT/HCPCS: 84550; 85025; 85651; 86140; 86160; 86162; 86235; 86255; 86376; 86431 ==

== ENCOUNTER → 2023-08-29 15:05 | Outpatient (BNVA) | payer MEDICARE, SELFPAY | PROVIDERS: PCP Nurse Practitioner Family; Visit Provider Nurse Practitioner | DX: M25.50 Pain in unspecified joint (principal) | CPT/HCPCS: 73080; 73130 ==

== ENCOUNTER → 2023-09-07 13:41 | Outpatient (BNVA) | payer MEDICARE, MEDICAID, SELFPAY | PROVIDERS: PCP Nurse Practitioner Family; Visit Provider Internal Medicine | DX: I10 Essential (primary) hypertension (principal); Z98.62 Peripheral vascular angioplasty status; Z98.890 Other specified postprocedural states; E78.5 Hyperlipidemia, unspecified; J44.9 Chronic obstructive pulmonary disease, unspecified; Z72.0 Tobacco use; I65.29 Occlusion and stenosis of unspecified carotid artery; I25.10 Atherosclerotic heart disease of native coronary artery without angina pectoris | CPT/HCPCS: 99214 ==

== ENCOUNTER → 2024-05-22 13:15 | Outpatient (BNVA) | payer MEDICARE, MEDICAID, SELFPAY | PROVIDERS: PCP Nurse Practitioner; Visit Provider Nurse Practitioner | DX: E55.9 Vitamin D deficiency, unspecified (principal); I10 Essential (primary) hypertension; F17.210 Nicotine dependence, cigarettes, uncomplicated; R09.89 Other specified symptoms and signs involving the circulatory and respiratory systems | CPT/HCPCS: 80053; 80061; 82306; 82607; 83721; 84443 ==

== ENCOUNTER 2024-05-31 08:00 | Outpatient (CLI) | payer MEDICARE, MEDICAID, SELFPAY ==
--- NOTE | 2024-05-31 08:15 | USCV_ITS ---
Jennifer Arreaga Age: 69 Gender: F : 1955 Exam Date: 05/31/2024 08:21 Ordering Phys: Vivi Love Technologist: R [place]am [place] [facility] [place] Indication: stenosis/occlusion Risk Factors: Previous Vascular Surgery: Right Brachial BP: / Left Brachial BP: / Right Left Velocity (cm/s) Spectral Plaque Velocity (cm/s) Spectral Plaque Syst/Diast Broadening Syst/Diast Broadening 68.50/ 15.40 Prox CCA 74.20 / 26.10 26.10/ 6.50 Mid CCA 83.70 / 34.50 27.60/ 6.50 Distal CCA 73.30 / 31.70 / Prox ICA 51.20 / 23.20 / Mid ICA 61.10 / 28.60 / 0.00 Distal ICA 66.10 / 32.20 ECA 82.60 0.40 ICA/CCA 0.70 Antegrade Vertebral Antegrade 49.90/ 21.70 cm/s 44.30/ 23.80 cm/s Tri Subclavian Bi 100.6 134.1 0 0 CONCLUSIONS Chronic RIGHT ICA occlusion unchanged Left ICA stenosis <50%. Moderate atheromatous plaque left carotid bulb/ICA. Prominent plaque Left proximal CCA with mild to moderate stenosis Numerous partially visualized thyroid nodules. Recommend thyroid ultrasound Normal antegrade Doppler flow noted in the right vertebral artery. Normal antegrade Doppler flow noted in the left vertebral artery. Bobo Tobar MD (Electronically Signed) Final Date: 31 May 2024 15:46 S
--- NOTE | 2024-05-31 09:00 | CT_ITS ---
WS: [email or web address] LDCT LUNG CANCER SCREENING TECHNIQUE: Noncontrast CT of the chest with coronal and sagittal reformatted images. CLINICAL INFORMATION: F17.210 - Nicotine dependence, cigarettes, uncomplicated COMPARISON: 06/30/2023 and 12/27/2022 DLP: 54.31 mGy.cm DIvol: Mean CTDIvol: 1.00 (mGy) All CT scans at [facility] use at least one of these dose optimization techniques: automat ed exposure control; mA and/or kV adjustment per patient size (includes targeted exams where dose is matched to clinical indication); or iterative reconstruction. FINDINGS: 8.5 mm slightly spiculated nodule in the RIGHT upper lobe posteriorly. This has increased in size sin ce 06/30/2023 and 12/27/2022 suspicious for small neoplasm. Recommend further evaluation with PET/CT. Calcified subpleural nodule LEFT lower lobe. A few tiny micronodules. Aortic calcification. Coronary calcification. No mediastinal or hilar lymphadenopathy. No axillary ly mphadenopathy. Partially visualized upper abdominal aortic stent. Adrenal glands are normal. Tiny esophageal hiatal hernia. Mild thoracic kyphosis. Endplate Schmorl's nodes in the midthoracic spine. CT/CT lung screening [id number] IMPRESSION: 8.5 mm slightly spiculated nodule RIGHT upper lobe posteriorly has increased in size since 06/30/2023. Findings suspicious for small neoplasm. Mickey mmend further evaluation with PET/CT. LUNG-RADS: 4B-Suspicious FOLLOW UP: PET/CT recommended
== END 2024-05-31 08:01 | disposition home or self-care (01) ==
LOC: RAD 08:02
PROVIDERS: PCP Nurse Practitioner; Visit Provider Nurse Practitioner
DX: Z12.2 Encounter for screening for malignant neoplasm of respiratory organs (principal); F17.210 Nicotine dependence, cigarettes, uncomplicated; R91.8 Other nonspecific abnormal finding of lung field; I70.0 Atherosclerosis of aorta; I25.84 Coronary atherosclerosis due to calcified coronary lesion; Z95.828 Presence of other vascular implants and grafts; M51.44 Schmorl's nodes, thoracic region; I65.22 Occlusion and stenosis of left carotid artery
CPT/HCPCS: 71271; 93880

== ENCOUNTER 2024-06-28 11:29 | Outpatient (CLI) | payer MEDICARE, MEDICAID, SELFPAY ==
--- NOTE | 2024-06-28 11:28 | PETR_ITS ---
PROCEDURE INFORMATION: Exam: PET/CT Skull Base to Mid-thigh Exam date and time: 06/28/2024 12:29 PM Age: 69 years old Clinical indication: Solitary pulmonary nodule. 8.5 mm slightly spiculated nodule in the right upper lobe (LUNG RADS 4 B) on lung cancer screening low-dose CT chest on 05/31/2024; Prior surgery; Surgery date: 6+ months; Surgery type: Stents. LABS AND CLINICAL REPORTS: Glucose: 106 mg/dl Treatment strategy for malignancy (PET staging): Initial Staging (PI) TECHNIQUE: Imaging protocol: Following at least four-hour fasting and following the injection of radiopharmaceutical, low dose CT images were obtained. Then, PET images were obtained. Attenuation corrected images were constructed using the CT scan. Fused images of PET and CT were reviewed. The standardized uptake values (SUV) reported below are maximum values within a region of interest, expressed in gm/ml. Exam includes orbital meatal line to mid-thigh. SUV normalization method: BodyWeight Radiopharmaceutical: 10.69 mCi F-18 FDG (Fluorodeoxyglucose), IV. Time of imaging post radiopharmaceutical administration: 49 minutes Injection site: LEFT AC COMPARISON: CT lung screening 05/31/2024 and 12/27/2022, CT abdomen pelvis 03/04/2019 FINDINGS: Brain: Normal physiologic uptake. Pharynx: Bilateral symmetric tonsillar uptake is compatible with benign finding. Larynx: No abnormal uptake. Lungs, pleura and trachea: No abnormal uptake. About 0.8 cm posterior right upper lobe nodule on axial image 87 is not FDG avid (2.3 SUV). No pleural effusion. Heart: No abnormal uptake. There is no cardiomegaly. Coronary artery calcification is present. There is no pericardial effusion. Mediastinal space: See below in lymph nodes . Liver: No abnormal uptake. Maximum uptake is 3.7 SUV. Gallbladder and biliary ducts: No abnormal uptake. Pancreas: No abnormal uptake. Spleen: No abnormal uptake. No splenomegaly. Adrenal glands: No abnormal uptake. No nodules. Kidneys and ureters: Normal physiologic uptake. No hydronephrosis. Stomach and bowel: No abnormal uptake. Mild diverticulosis of the sigmoid colon. Vasculature: No abnormal uptake. Aortic arch is dilated to 3.3 cm. Descending thoracic aorta is delighted to 3.4 cm. Stent graft is in the abdominal aorta. The aneurysmal sac around the stent graft measures 4 cm stable since 2019. Lymph nodes: Increased uptake of 5.2 SUV within normal size right hilar lymph node on axial image 99. No FDG avid lymphadenopathy in the neck, abdomen, pelvis, and extremities. Skeleton: No abnormal uptake in the visualized axial and appendicular skeleton. Soft tissues: No abnormal uptake in the visualized head, neck, chest, abdomen, pelvis, and extremities. PET/PET skull to thigh INIT [id number] IMPRESSION: No abnormal radiotracer uptake within right upper lobe subcentimeter lung nodule. Increased uptake of 5.2 SUV within normal size right hilar lymph node is indeterminate, may be malignant or benign. No abnormal FDG uptake outside of the chest. Stable findings after stenting of the abdominal aortic aneurysm.
== END 2024-06-28 11:30 | disposition home or self-care (01) ==
LOC: RAD 11:29
PROVIDERS: PCP Nurse Practitioner; Visit Provider Nurse Practitioner
DX: R91.1 Solitary pulmonary nodule; I25.10 Atherosclerotic heart disease of native coronary artery without angina pectoris; K57.30 Diverticulosis of large intestine without perforation or abscess without bleeding; Z98.890 Other specified postprocedural states; R93.89 Abnormal findings on diagnostic imaging of other specified body structures
CPT/HCPCS: 78815; A9552

== ENCOUNTER → 2024-08-28 10:42 | Outpatient (BNVA) | payer MEDICARE, MEDICAID, SELFPAY | PROVIDERS: PCP Nurse Practitioner; Visit Provider Nurse Practitioner | DX: E55.9 Vitamin D deficiency, unspecified (principal); M25.561 Pain in right knee; M10.9 Gout, unspecified | CPT/HCPCS: 82306; 84550; 85651 ==

== ENCOUNTER → 2024-08-29 09:09 | Outpatient (BNVA) | payer MEDICARE, MEDICAID, SELFPAY | PROVIDERS: PCP Nurse Practitioner; Visit Provider Nurse Practitioner | DX: M17.11 Unilateral primary osteoarthritis, right knee (principal) | CPT/HCPCS: 73562 ==

== ENCOUNTER 2024-09-06 07:38 | Outpatient (CLI) | payer MEDICARE, MEDICAID, SELFPAY ==
--- NOTE | 2024-09-06 08:00 | US_ITS ---
WS: [email or web address] ULTRASOUND THYROID TECHNIQUE: Ultrasound of the thyroid. CLINICAL INFORMATION: E04.1 - Nontoxic single thyroid nodule COMPARISON: 2020 FINDINGS: Thyroid: Right and left thyroid lobes are normal in size and echotexture. Tiny bilateral cystic lesions and colloid cysts. Findings are similar in appearance 2020. No suspicious thyroid nodules. Right thyroid lobe: 4.7 cm x 1.4 cm x 1.3 cm Left thyroid lobe: 4.3 cm x 1.4 cm x 1.5 cm. Isthmus: 0.2 mm. Cervical lymphadenopathy: None. US/US thyroid [id number] IMPRESSION: No suspicious thyroid nodules.
== END 2024-09-06 07:39 | disposition home or self-care (01) ==
LOC: RAD 07:39
PROVIDERS: PCP Nurse Practitioner; Visit Provider Nurse Practitioner
DX: E04.1 Nontoxic single thyroid nodule (principal)
CPT/HCPCS: 76536

== ENCOUNTER → 2024-09-25 07:55 | Outpatient (BNVA) | payer MEDICARE, MEDICAID, SELFPAY | PROVIDERS: PCP Nurse Practitioner; Visit Provider Student in an Organized Health Care Education/Training Program | DX: M12.561 Traumatic arthropathy, right knee (principal) | CPT/HCPCS: 20610; 73560; 73565; 99204; J3301; J9999 ==

== ENCOUNTER → 2024-12-25 09:38 | Outpatient (BNVA) | payer MEDICARE, MEDICAID, SELFPAY | PROVIDERS: PCP Nurse Practitioner; Visit Provider Nurse Practitioner Family | DX: D23.71 Other benign neoplasm of skin of right lower limb, including hip (principal); D23.72 Other benign neoplasm of skin of left lower limb, including hip; W89.1XXA Exposure to tanning bed, initial encounter; L81.4 Other melanin hyperpigmentation; L57.8 Other skin changes due to chronic exposure to nonionizing radiation; L82.0 Inflamed seborrheic keratosis; R20.8 Other disturbances of skin sensation; L53.8 Other specified erythematous conditions; Z78.9 Other specified health status; X58.XXXA Exposure to other specified factors, initial encounter | CPT/HCPCS: 17110; 99213 ==

== ENCOUNTER 2024-12-31 12:06 | Outpatient (CLI) | payer MEDICARE, MEDICAID, SELFPAY | END 2024-12-31 12:07 | disposition home or self-care (01) | LOC: SPT 12:07 | PROVIDERS: PCP Nurse Practitioner; Visit Provider Student in an Organized Health Care Education/Training Program | DX: Z46.89 Encounter for fitting and adjustment of other specified devices (principal); M25.561 Pain in right knee | CPT/HCPCS: 20610; J3301; J9999; L1851 ==

== ENCOUNTER → 2025-01-22 11:12 | Outpatient (BNVA) | payer MEDICARE, MEDICAID, SELFPAY | PROVIDERS: PCP Nurse Practitioner; Visit Provider Nurse Practitioner | DX: I10 Essential (primary) hypertension (principal); E55.9 Vitamin D deficiency, unspecified; I65.29 Occlusion and stenosis of unspecified carotid artery | CPT/HCPCS: 80053; 80061; 82306; 84443; 85025 ==

== ENCOUNTER 2025-02-18 11:42 | Outpatient (CLI) | payer MEDICARE, MEDICAID, SELFPAY ==
--- NOTE | 2025-02-18 11:40 | MM_ITS ---
WS: [email or web address] BILATERAL 3D TOMOSYNTHESIS DIGITAL SCREENING MAMMOGRAPHY WITH CAD CLINICAL INFORMATION: Z12.31 - Encounter for screening mammogram for malignant ... HISTORY: Screening mammogram. No current complaints. COMPARISON: 2022 TECHNIQUE: Bilateral CC and MLO views. FINDINGS: Scattered fibroglandular densities bilaterally. No suspicious focal mass, asymmetry, calcifications, or architectural distortion. No evidence of malignancy. Incidental punctate and lucent centered calcifications. MM/MM [facility] tomosynthesis [id number] IMPRESSION: DENSITY: There are scattered areas of fibroglandular density. BI-RADS: 2 - Benign. FOLLOW UP: 1 Year Follow-up Recommend return to annual screening mammography.
== END 2025-02-18 11:43 | disposition home or self-care (01) ==
LOC: MOBLMAM 11:43
PROVIDERS: PCP Nurse Practitioner; Visit Provider Nurse Practitioner
DX: Z12.31 Encounter for screening mammogram for malignant neoplasm of breast (principal); R92.323 Mammographic fibroglandular density, bilateral breasts; R92.1 Mammographic calcification found on diagnostic imaging of breast
CPT/HCPCS: 77063; 77067

== ENCOUNTER → 2025-04-08 09:01 | Outpatient (BNVA) | payer MEDICARE, MEDICAID, SELFPAY | PROVIDERS: PCP Nurse Practitioner; Visit Provider Student in an Organized Health Care Education/Training Program | DX: M12.561 Traumatic arthropathy, right knee (principal) | CPT/HCPCS: 99213 ==

== ENCOUNTER 2025-04-22 15:24 | Outpatient (CLI) | payer MEDICARE, MEDICAID, SELFPAY ==
--- NOTE | 2025-04-22 16:00 | USCV_ITS ---
Jennifer Arreaga Age: 69 Gender: F : 1955 Exam Date: 04/22/2025 16:01 Ordering Phys: Vivi Love Technologist: KEVIN Exam Location: [facility] [place] Indication: stenosis, left endarterectomy Risk Factors: Previous Vascular Surgery: Right Brachial BP: / Left Brachial BP: / Right Left Velocity (cm/s) Spectral Plaque Velocity (cm/s) Spectral Plaque Syst/Diast Broadening Syst/Diast Broadening 72.90/ 10.30 Prox CCA 108.70/ 39.00 44.30/ 6.00 Mid CCA 83.20 / 35.40 15.80/ 4.10 Distal CCA 78.50 / 27.30 25.50/ 8.00 Prox ICA 74.20 / 24.20 60.10/ 13.60 Mid ICA 52.20 / 25.50 64.00/ 17.10 Distal ICA 59.80 / 25.50 66.00 ECA 67.40 1.60 ICA/CCA 0.90 Antegrade Vertebral Antegrade 38.80/ 16.80 cm/s 49.50/ 24.60 cm/s Tri Subclavian Tri 93.40 84.60 FINDINGS Comparison:. 05/31/24 Questionable flow noted in the right ICA. Right ICA has been documented as occluded on prior exams. Suspect the flow may be the ECA. Extensive irregular plaque bilaterally throughout the carotid arteries. Antegrade vertebral arteries. CONCLUSIONS Questionable flow in the right ICA identified. Right ICA occlusion described on prior exams. Recommend CTA carotid arteries to evaluate possible patency of the ICA. Suspect the flow is likely ECA on this exam. Left ICA stenosis < 50%. Extensive carotid plaque, bilateral and diffuse. Dr. Lexus Contreras DO (Electronically Signed) Final Date: 23 April 2025 09:02 S
== END 2025-04-22 15:25 | disposition home or self-care (01) ==
LOC: RAD 15:25
PROVIDERS: PCP Nurse Practitioner; Visit Provider Nurse Practitioner
DX: R09.89 Other specified symptoms and signs involving the circulatory and respiratory systems (principal); I65.23 Occlusion and stenosis of bilateral carotid arteries
CPT/HCPCS: 93880

== ENCOUNTER 2025-05-15 11:41 | Outpatient (CLI) | payer MEDICARE, MEDICAID, SELFPAY ==
--- NOTE | 2025-05-15 12:00 | CT_ITS ---
WS: [email or web address] CTA HEAD AND NECK TECHNIQUE: Contrast enhanced CTA of the head and neck with coronal and sagittal reformatted images and maximum intensity projection (MIP) images. NASCET criteria utilized. CLINICAL INFORMATION: R94.39 - Abnormal result of other cardiovascular function... COMPARISON: Ultrasound 04/22/2025 DLP: 1116.[address] scans at [facility] use at least one of these dose optimization techniques: automated exposure control; mA and/or kV adjustment per patient size (includes targeted exams where dose is matched to clinical indication); or iterative reconstruction. FINDINGS: RIGHT: RIGHT common carotid artery is patent. Moderate atheromatous plaque RIGHT carotid bulb extending into the ICA. ICA is occluded just distal to the origin ICA remains occluded to the skull base. ECA is patent. LEFT: LEFT common carotid artery is patent. Moderate calcified atheromatous plaque LEFT carotid bulb. Postoperative changes LEFT CEA. LEFT ICA remains patent to the skull base. The vertebral arteries are patent. Codominant vertebral arteries. Proximal basilar artery is patent. Persistent LEFT FARM MANAGEMENT ADVISER. Robust patent RIGHT posterior communicating artery. Normal vascularity to the FARM MANAGEMENT ADVISER territory bilaterally. LEFT ICA is patent at the skull base. RIGHT ICA is occluded at the skull base. Hypoplastic RIGHT A1 segment. Small LEFT A1 segment. Patent anterior communicating artery. Normal vascularity to the ANGELINE MCA territories bilaterally. No evidence of proximal flow-limiting stenosis. Parotid glands are normal. Normal submandibular glands. Numerous small bilateral thyroid nodules. Aortic calcification. Proximal subclavian arteries are patent. Lobulated bilobed spiculated opacity in the RIGHT upper lobe measuring 1.6 x 0.8 cm has a suspicious appearance. Neoplasm not excluded. Recommend further evaluation with PET/CT. This appears slightly progressed since 04/22/2025 and 05/31/[address]A: CT/CT angio headneck* [id number] IMPRESSION: 1. RIGHT ICA is occluded just distal to the origin and remains occluded to the skull base. ECA is patent. 2. Prior postoperative changes LEFT CEA. No recurrent stenosis. 3. Dense vascular calcification. 4. Codominant patent vertebral arteries bilaterally. Proximal basilar artery i s patent. 5. No evidence of proximal flow-limiting intracranial stenosis. 6. Lobulated bilobed spiculated opacity in the RIGHT upper lobe measuring 1.6 x 0.8 cm has a suspicious appearance. Neoplasm not excluded. Recommend further evaluation with PET/CT. This appears slightly progressed since 04/22/2025 and 1 08/01/2023
[2025-05-15 12:21] LABS: Blood Urea Nitrogen 12 mg/dL (8-23)
[2025-05-15] MEDS: iohexol 350 mg/mL 500 mL Btl (per mL) IV (12:34)
== END 2025-05-15 11:42 | disposition home or self-care (01) ==
LOC: RAD 11:41
PROVIDERS: PCP Nurse Practitioner; Visit Provider Nurse Practitioner
DX: R94.39 Abnormal result of other cardiovascular function study (principal)
CPT/HCPCS: 70496; 70498; 82565; 84520